=== PATIENT | female | born 1985 | race Caucasian/White ===

== ENCOUNTER 2020-12-28 20:19 | Emergency (ER) | payer MEDICAID ==
[~2020-12-28] VITALS: Ht 160 cm; Wt 79.0 kg
[2020-12-28] MEDS ORDERED: ALBUTEROL SUL0.083 % IN (21:14)
[2020-12-28] MEDS ORDERED: MARIJUANA (21:15)
[2020-12-28] MEDS ORDERED: DIFLUCAN150 MG PO (21:22)
[2020-12-28 21:26] VITALS: BP 134/78
== END 2020-12-28 21:40 | disposition home or self-care (01) ==
LOC: ED 20:19
DX: N76.0 Acute vaginitis (principal); Z90.710 Acquired absence of both cervix and uterus

== ENCOUNTER 2021-01-01 18:45 | Emergency (ER) | payer MEDICAID ==
[~2021-01-01] VITALS: Ht 152.4 cm; Wt 79.5 kg
[~2021-01-01 18:45] MED LIST: ALBUTEROL SUL0.083 % IN; DIFLUCAN150 MG PO; MARIJUANA
[2021-01-01 19:24] VITALS: BP 117/77
[2021-01-01] MEDS ORDERED: PREDNISONE50 MG PO (20:10)
== END 2021-01-01 20:20 | disposition home or self-care (01) ==
LOC: ED 18:45
DX: M25.531 Pain in right wrist (principal); F17.210 Nicotine dependence, cigarettes, uncomplicated

== ENCOUNTER 2021-01-29 19:15 | Emergency (ER) | payer MEDICAID ==
[~2021-01-29] VITALS: Ht 160 cm; Wt 82.0 kg
[~2021-01-29 19:15] MED LIST changes: +PREDNISONE50 MG PO
[2021-01-29] MEDS ORDERED: LYRICA50 MG PO (19:51)
[2021-01-29] MEDS ORDERED: BACTRIM DS1 TAB PO (19:56)
[2021-01-29 20:08] VITALS: BP 118/58
== END 2021-01-29 20:11 | disposition home or self-care (01) ==
LOC: ED 19:15
DX: L73.9 Follicular disorder, unspecified (principal); J45.909 Unspecified asthma, uncomplicated; F17.210 Nicotine dependence, cigarettes, uncomplicated

== ENCOUNTER 2021-03-28 16:48 | Emergency (ER) | payer MEDICAID ==
[~2021-03-28] VITALS: Ht 160 cm; Wt 79.5 kg
[~2021-03-28 16:48] MED LIST changes: +BACTRIM DS1 TAB PO; +LYRICA50 MG PO
[2021-03-28 17:32] LABS: URINE BILIRUBIN - DIPSTICK NEGATIVE (NEGATIVE); URINE BLOOD DIPSTICK SMALL (NEGATIVE); URINE COLOR YELLOW; URINE GLUCOSE - DIPSTICK NEGATIVE (NEGATIVE); URINE KETONE NEGATIVE (NEGATIVE); URINE LEUK ESTERASE NEGATIVE (NEGATIVE); URINE NITRITE - DIPSTICK NEGATIVE (Negative); URINE PH 6.5 (4.5-8.0); URINE PROTEIN - DIPSTICK NEGATIVE (NEG-TRACE); URINE UROBILINOGEN - DIPSTICK 0.2 E.U./dL (0.2)
[2021-03-28 17:40] LABS: URINE RBC 0-2 RBC/hpf (0-5); URINE SQUAMOUS EPITHELIAL CELL FEW EPI/hpf (0-FEW)
[2021-03-28 17:49] LABS: HEMATOCRIT 41.5 % (37.0-47.0); HEMOGLOBIN 13.6 g/dl (12.0-16.0); IMMATURE GRANULOCYTES 0.2 % (0.0-5.0); MEAN CELL VOLUME 93.3 fL CALC (80.0-100.0); MEAN CORPUSCULAR HGB 30.6 pG CALC (26.0-32.0); MEAN CORPUSCULAR HGB CONC 32.8 g/dL CAL (32.0-36.0); NEUT# 4.56 thou/uL (2.00-7.15); RED BLOOD COUNT 4.45 mill/uL (4.20-5.60); RED CELL DISTRI WIDTH 12.6 % (11.5-15.5)
[2021-03-28 18:04] LABS: ALBUMIN 4.2 g/dL (3.2-5.0); ALKALINE PHOSPHATASE 51 u/l (38-126); ANION GAP 8 (6-22 (CALC)); BILIRUBIN, TOTAL 0.6 mg/dL (0.0-1.4); BUN 12 mg/dL (7-17); BUN/CREATININE RATIO 15 (12-20 (CALC)); CARBON DIOXIDE 25 mmol/l (22-30); CHLORIDE 108 mmol/l (95-108); CREATININE 0.8 mg/dL (0.5-1.0); GFR > 60 ML/MIN (>=60 (CALC)); GFR FOR AFR.AMER. > 60 ML/MIN (>=60 (CALC)); LIPASE 454 u/l (23-300); POTASSIUM 3.6 mmol/l (3.5-5.1); SGOT/AST 24 u/l (14-36); SODIUM 137 mmol/l (137-146); TOTAL PROTEIN 7.5 g/dL (6.3-8.2)
[2021-03-28] MEDS ORDERED: TRAMADOL HCL50 MG PO (19:41)
[2021-03-28 20:09] VITALS: BP 116/70
== END 2021-03-28 20:11 | disposition home or self-care (01) ==
LOC: ED 16:48
PROVIDERS: Family Medicine
DX: R10.12 Left upper quadrant pain (principal); M79.7 Fibromyalgia; J45.909 Unspecified asthma, uncomplicated; E66.9 Obesity, unspecified; F17.200 Nicotine dependence, unspecified, uncomplicated; Z68.31 Body mass index [BMI] 31.0-31.9, adult; Z20.822 Contact with and (suspected) exposure to COVID-19
CPT/HCPCS: Q9967

== ENCOUNTER 2021-03-30 19:24 | Emergency (ER) | payer MEDICAID ==
[~2021-03-30] VITALS: Ht 160 cm; Wt 79.0 kg
[~2021-03-30 19:24] MED LIST changes: +TRAMADOL HCL50 MG PO
[2021-03-30 20:57] LABS: IMMATURE GRANULOCYTES 0.1 % (0.0-5.0); MEAN CELL VOLUME 91.9 fL CALC (80.0-100.0); MEAN CORPUSCULAR HGB 30.6 pG CALC (26.0-32.0); MEAN CORPUSCULAR HGB CONC 33.3 g/dL CAL (32.0-36.0); NEUT# 6.77 thou/uL (2.00-7.15); RED BLOOD COUNT 4.57 mill/uL (4.20-5.60); RED CELL DISTRI WIDTH 12.3 % (11.5-15.5)
[2021-03-30 20:59] LABS: URINE BLOOD DIPSTICK NEGATIVE (NEGATIVE); URINE GLUCOSE - DIPSTICK NEGATIVE (NEGATIVE); URINE KETONE NEGATIVE (NEGATIVE); URINE LEUK ESTERASE NEGATIVE (NEGATIVE); URINE PROTEIN - DIPSTICK NEGATIVE (NEG-TRACE); URINE SPECIFIC GRAVITY >=1.030
[2021-03-30 21:02] LABS: URINE BILIRUBIN - DIPSTICK NEGATIVE (NEGATIVE); URINE COLOR DK. YELLOW; URINE NITRITE - DIPSTICK NEGATIVE (Negative)
[2021-03-30 21:05] LABS: HCG SERUM/URINE (NEG/POS) NEGATIVE (NEGATIVE)
[2021-03-30 21:10] VITALS: BP 118/63
[2021-03-30 21:18] LABS: ALBUMIN 4.2 g/dL (3.2-5.0); AMYLASE 108 u/l (30-110); ANION GAP 8 (6-22 (CALC)); BUN 11 mg/dL (7-17); BUN/CREATININE RATIO 13 (12-20 (CALC)); CARBON DIOXIDE 29 mmol/l (22-30); CHLORIDE 103 mmol/l (95-108); CREATININE 0.8 mg/dL (0.5-1.0); ETHYL ALCOHOL 0 mg/dl (0-30); GFR > 60 ML/MIN (>=60 (CALC)); GFR FOR AFR.AMER. > 60 ML/MIN (>=60 (CALC)); LIPASE 164 u/l (23-300); POTASSIUM 3.2 mmol/l (3.5-5.1); SODIUM 136 mmol/l (137-146); TOTAL PROTEIN 7.2 g/dL (6.3-8.2)
[2021-03-30 21:23] LABS: ALKALINE PHOSPHATASE 99 u/l (38-126); SGOT/AST 162 u/l (14-36)
== END 2021-03-30 22:00 | disposition left against medical advice (07) ==
LOC: ED 19:24
DX: R10.12 Left upper quadrant pain (principal); R10.13 Epigastric pain; R11.0 Nausea; J45.909 Unspecified asthma, uncomplicated; M79.7 Fibromyalgia; M41.9 Scoliosis, unspecified; F17.200 Nicotine dependence, unspecified, uncomplicated; Z91.19 Patient's noncompliance with other medical treatment and regimen; Z90.49 Acquired absence of other specified parts of digestive tract; Z20.822 Contact with and (suspected) exposure to COVID-19
CPT/HCPCS: S0164

== ENCOUNTER 2021-06-28 09:36 | Emergency (ER) | payer MEDICAID ==
[~2021-06-28] VITALS: Ht 160 cm; Wt 77.3 kg
[2021-06-28 10:31] LABS: URINE BILIRUBIN - DIPSTICK NEGATIVE (NEGATIVE); URINE BLOOD DIPSTICK TRACE-INTACT (NEGATIVE); URINE COLOR YELLOW; URINE GLUCOSE - DIPSTICK NEGATIVE (NEGATIVE); URINE KETONE NEGATIVE (NEGATIVE); URINE LEUK ESTERASE NEGATIVE (NEGATIVE); URINE PROTEIN - DIPSTICK NEGATIVE (NEG-TRACE); URINE UROBILINOGEN - DIPSTICK 0.2 E.U./dL (0.2)
[2021-06-28 10:32] LABS: URINE NITRITE - DIPSTICK NEGATIVE (Negative)
[2021-06-28 10:33] LABS: HEMATOCRIT 40.8 % (37.0-47.0); HEMOGLOBIN 13.1 g/dl (12.0-16.0); IMMATURE GRANULOCYTES 0.1 % (0.0-5.0); MEAN CELL VOLUME 93.8 fL CALC (80.0-100.0); MEAN CORPUSCULAR HGB 30.1 pG CALC (26.0-32.0); MEAN CORPUSCULAR HGB CONC 32.1 g/dL CAL (32.0-36.0); NEUT# 4.83 thou/uL (2.00-7.15); RED BLOOD COUNT 4.35 mill/uL (4.20-5.60); RED CELL DISTRI WIDTH 13.7 % (11.5-15.5)
[2021-06-28 11:19] LABS: ALBUMIN 3.4 g/dL (3.2-5.0); BUN 12 mg/dL (7-17); BUN/CREATININE RATIO 16 (12-20 (CALC)); CARBON DIOXIDE 26 mmol/l (22-30); CHLORIDE 109 mmol/l (95-108); CREATININE 0.8 mg/dL (0.5-1.0); GFR > 60 ML/MIN (>=60 (CALC)); GFR FOR AFR.AMER. > 60 ML/MIN (>=60 (CALC)); LIPASE 179 u/l (23-300); SODIUM 138 mmol/l (137-146); TOTAL PROTEIN 6.3 g/dL (6.3-8.2)
[2021-06-28 11:20] LABS: ALKALINE PHOSPHATASE 47 u/l (38-126); ANION GAP 7 (6-22 (CALC)); BILIRUBIN, TOTAL 0.4 mg/dL (0.0-1.4); POTASSIUM 4.3 mmol/l (3.5-5.1); SGOT/AST 21 u/l (14-36)
[2021-06-28 12:02] LABS: TSH, 3RD GENERATION 0.66 uIU/mL (0.47 - 4.68)
[2021-06-28 12:59] VITALS: BP 131/70
== END 2021-06-28 12:59 | disposition home or self-care (01) ==
LOC: ED 09:36
PROVIDERS: Family Medicine
DX: R10.84 Generalized abdominal pain (principal); J45.909 Unspecified asthma, uncomplicated; F32.A Depression, unspecified; F17.210 Nicotine dependence, cigarettes, uncomplicated; Z13.220 Encounter for screening for lipoid disorders; R53.83 Other fatigue; D64.9 Anemia, unspecified

== ENCOUNTER 2021-07-29 13:58 | Emergency (ER) | payer OTHER, MEDICAID ==
[~2021-07-29] VITALS: Ht 160 cm; Wt 68.0 kg
[2021-07-29 16:03] VITALS: BP 112/82
== END 2021-07-29 16:05 | disposition home or self-care (01) | DRG 914 ==
LOC: ED 13:58
DX: S67.197A Crushing injury of left little finger, initial encounter (principal); J45.909 Unspecified asthma, uncomplicated; F32.A Depression, unspecified; M79.7 Fibromyalgia; F17.210 Nicotine dependence, cigarettes, uncomplicated; W31.9XXA Contact with unspecified machinery, initial encounter; Y92.89 Other specified places as the place of occurrence of the external cause; Y99.0 Civilian activity done for income or pay

== ENCOUNTER 2021-09-25 22:46 | Emergency (ER) | payer MEDICAID ==
[~2021-09-25] VITALS: Ht 160 cm; Wt 82.0 kg
[2021-09-25] MEDS ORDERED: AMOX/K CLAV875 M1 PO (23:34)
[2021-09-26] MEDS ORDERED: ZOLOFT50 MG PO (00:14)
[2021-09-26 00:16] VITALS: BP 120/79
== END 2021-09-26 00:21 | disposition home or self-care (01) ==
LOC: ED 22:46
DX: S80.871A Other superficial bite, right lower leg, initial encounter (principal); J45.909 Unspecified asthma, uncomplicated; F32.A Depression, unspecified; M79.7 Fibromyalgia; F17.200 Nicotine dependence, unspecified, uncomplicated; W54.0XXA Bitten by dog, initial encounter; Y93.89 Activity, other specified; Y92.009 Unspecified place in unspecified non-institutional (private) residence as the place of occurrence of the external cause; Y99.0 Civilian activity done for income or pay

== ENCOUNTER 2021-10-27 19:14 | Emergency (ER) | payer OTHER, MEDICAID ==
[~2021-10-27] VITALS: Ht 160 cm; Wt 90.0 kg
[~2021-10-27 19:14] MED LIST changes: +AMOX/K CLAV875 M1 PO; +ZOLOFT50 MG PO
[2021-10-27 19:47] VITALS: BP 120/56
[2021-10-27 20:01] VITALS: BP 109/50
[2021-10-27 21:00] VITALS: BP 97/55
[2021-10-27 22:00] VITALS: BP 106/62
[2021-10-27 22:06] LABS: HEMATOCRIT 42.8 % (37.0-47.0); IMMATURE GRANULOCYTES 0.2 % (0.0-5.0); MEAN CELL VOLUME 91.6 fL CALC (80.0-100.0); MEAN CORPUSCULAR HGB CONC 32.7 g/dL CAL (32.0-36.0); NEUT# 5.69 thou/uL (2.00-7.15); RED BLOOD COUNT 4.67 mill/uL (4.20-5.60); RED CELL DISTRI WIDTH 12.9 % (11.5-15.5)
[2021-10-27 22:22] LABS: ALBUMIN 4.1 g/dL (3.2-5.0); ALKALINE PHOSPHATASE 64 u/l (38-126); ANION GAP 4 (6-22 (CALC)); BILIRUBIN, TOTAL 0.5 mg/dL (0.0-1.4); BUN 10 mg/dL (7-17); BUN/CREATININE RATIO 12 (12-20 (CALC)); CARBON DIOXIDE 29 mmol/l (22-30); CHLORIDE 105 mmol/l (95-108); CREATININE 0.9 mg/dL (0.5-1.0); GFR > 60 ML/MIN (>=60 (CALC)); GFR FOR AFR.AMER. > 60 ML/MIN (>=60 (CALC)); POTASSIUM 3.8 mmol/l (3.5-5.1); SGOT/AST 30 u/l (14-36); SODIUM 135 mmol/l (137-146)
== END 2021-10-27 22:45 | disposition short-term general hospital (02) ==
LOC: ED 19:14
PROVIDERS: Emergency Medicine
DX: S06.340A Traumatic hemorrhage of right cerebrum without loss of consciousness, initial encounter (principal); J45.909 Unspecified asthma, uncomplicated; F32.A Depression, unspecified; F17.200 Nicotine dependence, unspecified, uncomplicated; W20.8XXA Other cause of strike by thrown, projected or falling object, initial encounter; Y93.89 Activity, other specified; Y92.89 Other specified places as the place of occurrence of the external cause; Y99.0 Civilian activity done for income or pay; Z20.822 Contact with and (suspected) exposure to COVID-19

== ENCOUNTER 2021-11-14 18:47 | Emergency (ER) | payer MEDICAID ==
[~2021-11-14] VITALS: Ht 160 cm; Wt 85.9 kg
[2021-11-14 20:15] LABS: HEMATOCRIT 38.6 % (37.0-47.0); HEMOGLOBIN 12.7 g/dl (12.0-16.0); IMMATURE GRANULOCYTES 0.2 % (0.0-5.0); MEAN CELL VOLUME 91.5 fL CALC (80.0-100.0); MEAN CORPUSCULAR HGB 30.1 pG CALC (26.0-32.0); MEAN CORPUSCULAR HGB CONC 32.9 g/dL CAL (32.0-36.0); NEUT# 3.99 thou/uL (2.00-7.15); RED BLOOD COUNT 4.22 mill/uL (4.20-5.60); RED CELL DISTRI WIDTH 13.3 % (11.5-15.5)
[2021-11-14 20:33] LABS: ALBUMIN 3.5 g/dL (3.2-5.0); ALKALINE PHOSPHATASE 43 u/l (38-126); ANION GAP 10 (6-22 (CALC)); BUN 13 mg/dL (7-17); BUN/CREATININE RATIO 15 (12-20 (CALC)); CARBON DIOXIDE 25 mmol/l (22-30); CHLORIDE 107 mmol/l (95-108); CREATININE 0.8 mg/dL (0.5-1.0); GFR > 60 ML/MIN (>=60 (CALC)); GFR FOR AFR.AMER. > 60 ML/MIN (>=60 (CALC)); LIPASE 186 u/l (23-300); POTASSIUM 4.4 mmol/l (3.5-5.1); SGOT/AST 21 u/l (14-36); SODIUM 138 mmol/l (137-146); TOTAL PROTEIN 6.2 g/dL (6.3-8.2)
[2021-11-14 20:40] LABS: BILIRUBIN, TOTAL 0.1 mg/dL (0.0-1.4)
[2021-11-14 20:40] LABS: URINE BILIRUBIN - DIPSTICK NEGATIVE (NEGATIVE); URINE BLOOD DIPSTICK TRACE-INTACT (NEGATIVE); URINE COLOR YELLOW; URINE GLUCOSE - DIPSTICK NEGATIVE (NEGATIVE); URINE KETONE NEGATIVE (NEGATIVE); URINE LEUK ESTERASE NEGATIVE (NEGATIVE); URINE PROTEIN - DIPSTICK NEGATIVE (NEG-TRACE); URINE SPECIFIC GRAVITY >=1.030; URINE UROBILINOGEN - DIPSTICK 0.2 E.U./dL (0.2)
[2021-11-14 20:42] LABS: URINE NITRITE - DIPSTICK NEGATIVE (Negative)
[2021-11-14 22:37] VITALS: BP 110/59
== END 2021-11-15 00:55 | disposition home or self-care (01) ==
LOC: ED 18:47
PROVIDERS: Internal Medicine
DX: R10.12 Left upper quadrant pain (principal); J45.909 Unspecified asthma, uncomplicated; F32.A Depression, unspecified; Z90.710 Acquired absence of both cervix and uterus; Z90.49 Acquired absence of other specified parts of digestive tract
CPT/HCPCS: Q9967

== ENCOUNTER 2021-11-22 19:35 | Emergency (ER) | payer MEDICAID ==
[~2021-11-22] VITALS: Ht 160 cm; Wt 86.3 kg
[2021-11-22 21:11] VITALS: BP 102/67
[2021-11-22 21:27] LABS: HEMATOCRIT 42.1 % (37.0-47.0); HEMOGLOBIN 13.7 g/dl (12.0-16.0); IMMATURE GRANULOCYTES 0.1 % (0.0-5.0); MEAN CELL VOLUME 92.5 fL CALC (80.0-100.0); MEAN CORPUSCULAR HGB 30.1 pG CALC (26.0-32.0); MEAN CORPUSCULAR HGB CONC 32.5 g/dL CAL (32.0-36.0); NEUT# 3.47 thou/uL (2.00-7.15); RED BLOOD COUNT 4.55 mill/uL (4.20-5.60); RED CELL DISTRI WIDTH 12.9 % (11.5-15.5)
[2021-11-22 21:28] LABS: URINE BILIRUBIN - DIPSTICK NEGATIVE (NEGATIVE); URINE BLOOD DIPSTICK TRACE-INTACT (NEGATIVE); URINE COLOR YELLOW; URINE GLUCOSE - DIPSTICK NEGATIVE (NEGATIVE); URINE KETONE NEGATIVE (NEGATIVE); URINE LEUK ESTERASE NEGATIVE (NEGATIVE); URINE PROTEIN - DIPSTICK NEGATIVE (NEG-TRACE); URINE SPECIFIC GRAVITY 1.025; URINE UROBILINOGEN - DIPSTICK 0.2 E.U./dL (0.2)
[2021-11-22 21:29] LABS: URINE NITRITE - DIPSTICK NEGATIVE (Negative)
[2021-11-22 21:43] LABS: ALBUMIN 3.8 g/dL (3.2-5.0); ALKALINE PHOSPHATASE 48 u/l (38-126); ANION GAP 11 (6-22 (CALC)); BILIRUBIN, TOTAL 0.4 mg/dL (0.0-1.4); BUN 13 mg/dL (7-17); BUN/CREATININE RATIO 16 (12-20 (CALC)); CARBON DIOXIDE 26 mmol/l (22-30); CHLORIDE 106 mmol/l (95-108); CREATININE 0.9 mg/dL (0.5-1.0); GFR > 60 ML/MIN (>=60 (CALC)); GFR FOR AFR.AMER. > 60 ML/MIN (>=60 (CALC)); POTASSIUM 3.8 mmol/l (3.5-5.1); SGOT/AST 28 u/l (14-36); SODIUM 139 mmol/l (137-146); TOTAL PROTEIN 6.6 g/dL (6.3-8.2)
== END 2021-11-22 23:05 | disposition left against medical advice (07) ==
LOC: ED 19:35
PROVIDERS: Family Medicine
DX: S06.349A Traumatic hemorrhage of right cerebrum with loss of consciousness of unspecified duration, initial encounter (principal); X58.XXXA Exposure to other specified factors, initial encounter; J45.909 Unspecified asthma, uncomplicated; F32.A Depression, unspecified; Z91.19 Patient's noncompliance with other medical treatment and regimen

== ENCOUNTER 2022-01-01 02:11 | Emergency (ER) | payer MEDICAID ==
[~2022-01-01] VITALS: Ht 160 cm; Wt 86.0 kg
[2022-01-01 02:28] VITALS: BP 176/116
[2022-01-01 02:30] VITALS: BP 146/113
[2022-01-01] MEDS ORDERED: ALLEGRA-D 2424 HOUR PO (02:38)
[2022-01-01] MEDS ORDERED: BACTRIM DS1 TAB PO (02:38)
[2022-01-01 02:45] VITALS: BP 150/111
[2022-01-01 03:00] VITALS: BP 144/94
[2022-01-01 03:14] VITALS: BP 144/94
== END 2022-01-01 03:15 | disposition home or self-care (01) ==
LOC: ED 02:11
DX: J01.90 Acute sinusitis, unspecified (principal); H69.92 Unspecified Eustachian tube disorder, left ear; J45.909 Unspecified asthma, uncomplicated; F32.A Depression, unspecified; F17.200 Nicotine dependence, unspecified, uncomplicated

== ENCOUNTER 2022-01-22 14:10 | Emergency (ER) | payer MEDICAID ==
[~2022-01-22] VITALS: Ht 160 cm; Wt 86.3 kg
[~2022-01-22 14:10] MED LIST changes: +ALLEGRA-D 2424 HOUR PO
[2022-01-22] MEDS ORDERED: AMOX/K CLAV875 M1 PO (14:45)
[2022-01-22] MEDS ORDERED: MEDDOSEPAK PO (14:45)
[2022-01-22] MEDS ORDERED: LEVOCETIRIZINE D5 MG PO (14:45)
[2022-01-22 14:53] VITALS: BP 140/110
== END 2022-01-22 15:16 | disposition home or self-care (01) ==
LOC: ED 14:10
DX: J01.90 Acute sinusitis, unspecified (principal); J45.909 Unspecified asthma, uncomplicated; M79.7 Fibromyalgia; F32.A Depression, unspecified; F17.200 Nicotine dependence, unspecified, uncomplicated; H92.02 Otalgia, left ear; J34.89 Other specified disorders of nose and nasal sinuses; H66.92 Otitis media, unspecified, left ear

== ENCOUNTER 2022-01-28 19:52 | Emergency (ER) | payer MEDICAID ==
[~2022-01-28] VITALS: Ht 162.6 cm; Wt 88.6 kg
[~2022-01-28 19:52] MED LIST changes: +LEVOCETIRIZINE D5 MG PO; +MEDDOSEPAK PO
[2022-01-28 20:05] VITALS: BP 159/118
[2022-01-28 20:06] VITALS: BP 137/105
[2022-01-28 20:30] VITALS: BP 152/85
[2022-01-28 20:39] LABS: HEMATOCRIT 44.5 % (37.0-47.0); HEMOGLOBIN 14.3 g/dl (12.0-16.0); IMMATURE GRANULOCYTES 0.5 % (0.0-5.0); MEAN CELL VOLUME 93.3 fL CALC (80.0-100.0); MEAN CORPUSCULAR HGB CONC 32.1 g/dL CAL (32.0-36.0); NEUT# 11.33 thou/uL (2.00-7.15); RED BLOOD COUNT 4.77 mill/uL (4.20-5.60); RED CELL DISTRI WIDTH 13.2 % (11.5-15.5)
[2022-01-28 20:49] LABS: ALKALINE PHOSPHATASE 51 u/l (38-126); ANION GAP 10 (6-22 (CALC)); BUN 18 mg/dL (7-17); BUN/CREATININE RATIO 23 (12-20 (CALC)); CARBON DIOXIDE 27 mmol/l (22-30); CHLORIDE 105 mmol/l (95-108); CREATININE 0.8 mg/dL (0.5-1.0); GFR FOR AFR.AMER. > 60 ML/MIN (>=60 (CALC)); GFR OTHER RACES > 60 ML/MIN (>=60 (CALC)); SGOT/AST 18 u/l (14-36); SODIUM 137 mmol/l (137-146); TOTAL PROTEIN 7.1 g/dL (6.3-8.2)
[2022-01-28 20:55] LABS: BILIRUBIN, TOTAL 0.2 mg/dL (0.0-1.4)
[2022-01-28 21:00] VITALS: BP 126/87
[2022-01-28 21:30] VITALS: BP 148/95
[2022-01-28] MEDS ORDERED: TEGRETOL200 MG PO (21:52)
[2022-01-28 21:55] VITALS: BP 148/95
== END 2022-01-28 22:00 | disposition home or self-care (01) ==
LOC: ED 19:52
PROVIDERS: Family Medicine
DX: G50.0 Trigeminal neuralgia (principal); F32.A Depression, unspecified; M79.7 Fibromyalgia; F17.210 Nicotine dependence, cigarettes, uncomplicated

== ENCOUNTER 2022-01-31 20:47 | Emergency (ER) | payer MEDICAID ==
[~2022-01-31] VITALS: Ht 162.6 cm; Wt 89.0 kg
[~2022-01-31 20:47] MED LIST changes: +TEGRETOL200 MG PO
[2022-01-31 20:57] VITALS: BP 157/84
[2022-01-31 21:41] LABS: URINE BILIRUBIN - DIPSTICK NEGATIVE (NEGATIVE); URINE BLOOD DIPSTICK MODERATE (NEGATIVE); URINE COLOR YELLOW; URINE GLUCOSE - DIPSTICK NEGATIVE (NEGATIVE); URINE KETONE NEGATIVE (NEGATIVE); URINE LEUK ESTERASE NEGATIVE (NEGATIVE); URINE PROTEIN - DIPSTICK NEGATIVE (NEG-TRACE); URINE SPECIFIC GRAVITY >=1.030; URINE UROBILINOGEN - DIPSTICK 0.2 E.U./dL (0.2)
[2022-01-31 21:42] LABS: HEMATOCRIT 42.3 % (37.0-47.0); HEMOGLOBIN 13.9 g/dl (12.0-16.0); IMMATURE GRANULOCYTES 0.2 % (0.0-5.0); MEAN CELL VOLUME 91.4 fL CALC (80.0-100.0); MEAN CORPUSCULAR HGB CONC 32.9 g/dL CAL (32.0-36.0); NEUT# 9.7 thou/uL (2.00-7.15); RED BLOOD COUNT 4.63 mill/uL (4.20-5.60); RED CELL DISTRI WIDTH 13.3 % (11.5-15.5)
[2022-01-31 21:44] LABS: URINE NITRITE - DIPSTICK NEGATIVE (Negative)
[2022-01-31 21:52] LABS: URINE SQUAMOUS EPITHELIAL CELL FEW EPI/hpf (0-FEW)
[2022-01-31 22:05] LABS: ALBUMIN 4.1 g/dL (3.2-5.0); ALKALINE PHOSPHATASE 71 u/l (38-126); ANION GAP 9 (6-22 (CALC)); BUN 10 mg/dL (7-17); BUN/CREATININE RATIO 11 (12-20 (CALC)); CARBON DIOXIDE 29 mmol/l (22-30); CHLORIDE 99 mmol/l (95-108); CREATININE 0.9 mg/dL (0.5-1.0); GFR FOR AFR.AMER. > 60 ML/MIN (>=60 (CALC)); GFR OTHER RACES > 60 ML/MIN (>=60 (CALC)); POTASSIUM 3.6 mmol/l (3.5-5.1); SODIUM 134 mmol/l (137-146); TOTAL PROTEIN 7.2 g/dL (6.3-8.2)
[2022-01-31 22:09] LABS: BILIRUBIN, TOTAL 0.3 mg/dL (0.0-1.4); SGOT/AST 60 u/l (14-36)
[2022-01-31] MEDS ORDERED: NAPROXEN500 MG PO (23:36)
[2022-01-31] MEDS ORDERED: BACTRIM DS1 TAB PO (23:36)
[2022-02-01 01:16] VITALS: BP 127/86
== END 2022-02-01 01:10 | disposition home or self-care (01) ==
LOC: ED 20:47
PROVIDERS: Emergency Medicine
DX: N39.0 Urinary tract infection, site not specified (principal); J45.909 Unspecified asthma, uncomplicated; M79.7 Fibromyalgia; F32.A Depression, unspecified; F17.210 Nicotine dependence, cigarettes, uncomplicated; Z20.822 Contact with and (suspected) exposure to COVID-19
CPT/HCPCS: Q9967

== ENCOUNTER 2022-02-09 15:43 | Emergency (ER) | payer MEDICAID ==
[~2022-02-09] VITALS: Ht 162.6 cm; Wt 89.0 kg
[2022-02-09] VITALS (10 sets, daily range): BP systolic 112–148; BP diastolic 54–95
[~2022-02-09 15:43] MED LIST changes: +NAPROXEN500 MG PO
[2022-02-09] MEDS ORDERED: NAPROXEN500 MG PO (18:22)
== END 2022-02-09 18:41 | disposition home or self-care (01) ==
LOC: ED 15:43
DX: S92.532A Displaced fracture of distal phalanx of left lesser toe(s), initial encounter for closed fracture (principal); F17.210 Nicotine dependence, cigarettes, uncomplicated; W22.09XA Striking against other stationary object, initial encounter; Y93.89 Activity, other specified; Y92.009 Unspecified place in unspecified non-institutional (private) residence as the place of occurrence of the external cause

== ENCOUNTER 2022-02-18 00:01 | Emergency (ER) | payer MEDICAID ==
[~2022-02-18] VITALS: Ht 162.6 cm; Wt 90.0 kg
[2022-02-18 00:12] VITALS: BP 142/67
[2022-02-18 00:30] VITALS: BP 118/71
[2022-02-18 01:00] VITALS: BP 113/76
[2022-02-18 01:00] LABS: HEMATOCRIT 39.1 % (37.0-47.0); HEMOGLOBIN 12.6 g/dl (12.0-16.0); IMMATURE GRANULOCYTES 0.4 % (0.0-5.0); MEAN CELL VOLUME 92.4 fL CALC (80.0-100.0); MEAN CORPUSCULAR HGB 29.8 pG CALC (26.0-32.0); MEAN CORPUSCULAR HGB CONC 32.2 g/dL CAL (32.0-36.0); NEUT# 4.88 thou/uL (2.00-7.15); RED BLOOD COUNT 4.23 mill/uL (4.20-5.60)
[2022-02-18 01:01] LABS: URINE BILIRUBIN - DIPSTICK NEGATIVE (NEGATIVE); URINE BLOOD DIPSTICK NEGATIVE (NEGATIVE); URINE COLOR YELLOW; URINE GLUCOSE - DIPSTICK NEGATIVE (NEGATIVE); URINE KETONE NEGATIVE (NEGATIVE); URINE LEUK ESTERASE NEGATIVE (NEGATIVE); URINE PROTEIN - DIPSTICK NEGATIVE (NEG-TRACE); URINE SPECIFIC GRAVITY 1.015; URINE UROBILINOGEN - DIPSTICK 0.2 E.U./dL (0.2)
[2022-02-18 01:05] LABS: URINE NITRITE - DIPSTICK NEGATIVE (Negative)
[2022-02-18 01:15] LABS: ALKALINE PHOSPHATASE 61 u/l (38-126); ANION GAP 12 (6-22 (CALC)); BUN 13 mg/dL (7-17); BUN/CREATININE RATIO 15 (12-20 (CALC)); CARBON DIOXIDE 24 mmol/l (22-30); CHLORIDE 107 mmol/l (95-108); CREATININE 0.9 mg/dL (0.5-1.0); GFR FOR AFR.AMER. > 60 ML/MIN (>=60 (CALC)); GFR OTHER RACES > 60 ML/MIN (>=60 (CALC)); POTASSIUM 3.5 mmol/l (3.5-5.1); SGOT/AST 27 u/l (14-36); SODIUM 139 mmol/l (137-146); TOTAL PROTEIN 7.1 g/dL (6.3-8.2)
[2022-02-18 01:19] LABS: BILIRUBIN, TOTAL 0.1 mg/dL (0.0-1.4)
[2022-02-18] MEDS ORDERED: ZITHROMAX250 MG PO (01:35)
[2022-02-18] MEDS ORDERED: ULTRAM50 M1 PO (01:36)
[2022-02-18 01:44] VITALS: BP 113/76
== END 2022-02-18 01:53 | disposition home or self-care (01) ==
LOC: ED 00:01
PROVIDERS: Emergency Medicine
DX: K04.7 Periapical abscess without sinus (principal); S02.5XXA Fracture of tooth (traumatic), initial encounter for closed fracture; J45.909 Unspecified asthma, uncomplicated; F32.A Depression, unspecified; F17.200 Nicotine dependence, unspecified, uncomplicated; X58.XXXA Exposure to other specified factors, initial encounter; Z20.822 Contact with and (suspected) exposure to COVID-19

== ENCOUNTER 2022-03-08 22:12 | Emergency (ER) | payer MEDICAID ==
[~2022-03-08] VITALS: Ht 162.6 cm; Wt 88.0 kg
[~2022-03-08 22:12] MED LIST changes: +ULTRAM50 M1 PO; +ZITHROMAX250 MG PO
[2022-03-08 23:44] VITALS: BP 111/69
[2022-03-09] VITALS: BP 106/44
[2022-03-09 00:30] VITALS: BP 113/38
[2022-03-09 00:47] LABS: HEMATOCRIT 36.9 % (37.0-47.0); HEMOGLOBIN 12.3 g/dl (12.0-16.0); IMMATURE GRANULOCYTES 0.8 % (0.0-5.0); MEAN CELL VOLUME 89.8 fL CALC (80.0-100.0); MEAN CORPUSCULAR HGB 29.9 pG CALC (26.0-32.0); MEAN CORPUSCULAR HGB CONC 33.3 g/dL CAL (32.0-36.0); NEUT# 6.9 thou/uL (2.00-7.15); RED BLOOD COUNT 4.11 mill/uL (4.20-5.60); RED CELL DISTRI WIDTH 13.1 % (11.5-15.5)
[2022-03-09 01:03] LABS: ALBUMIN 3.8 g/dL (3.2-5.0); ALKALINE PHOSPHATASE 54 u/l (38-126); ANION GAP 10 (6-22 (CALC)); BUN 16 mg/dL (7-17); BUN/CREATININE RATIO 17 (12-20 (CALC)); CARBON DIOXIDE 27 mmol/l (22-30); CHLORIDE 106 mmol/l (95-108); GFR FOR AFR.AMER. > 60 ML/MIN (>=60 (CALC)); GFR OTHER RACES > 60 ML/MIN (>=60 (CALC)); SGOT/AST 22 u/l (14-36); SODIUM 139 mmol/l (137-146); TOTAL PROTEIN 6.5 g/dL (6.3-8.2)
[2022-03-09 01:30] VITALS: BP 111/62
[2022-03-09 02:01] VITALS: BP 94/42
[2022-03-09 02:32] LABS: URINE BILIRUBIN - DIPSTICK NEGATIVE (NEGATIVE); URINE BLOOD DIPSTICK TRACE-LYSED (NEGATIVE); URINE COLOR YELLOW; URINE GLUCOSE - DIPSTICK NEGATIVE (NEGATIVE); URINE KETONE NEGATIVE (NEGATIVE); URINE LEUK ESTERASE NEGATIVE (NEGATIVE); URINE NITRITE - DIPSTICK NEGATIVE (Negative); URINE PROTEIN - DIPSTICK NEGATIVE (NEG-TRACE); URINE UROBILINOGEN - DIPSTICK 0.2 E.U./dL (0.2)
[2022-03-09] MEDS ORDERED: PAXLOVID PO (02:37)
[2022-03-09 02:53] VITALS: BP 101/78
== END 2022-03-09 02:53 | disposition home or self-care (01) ==
LOC: ED 22:12
PROVIDERS: Family Medicine
DX: U07.1 COVID-19 (principal); R50.9 Fever, unspecified; F17.200 Nicotine dependence, unspecified, uncomplicated; J45.909 Unspecified asthma, uncomplicated; R52 Pain, unspecified

== ENCOUNTER 2022-04-07 22:40 | Emergency (ER) | payer MEDICAID ==
[~2022-04-07] VITALS: Ht 162.6 cm; Wt 88.6 kg
[~2022-04-07 22:40] MED LIST changes: +PAXLOVID PO
[2022-04-08 00:02] VITALS: BP 108/60
== END 2022-04-08 00:16 | disposition home or self-care (01) ==
LOC: ED 22:40
DX: L02.211 Cutaneous abscess of abdominal wall (principal); J45.909 Unspecified asthma, uncomplicated; F32.A Depression, unspecified; F17.200 Nicotine dependence, unspecified, uncomplicated

== ENCOUNTER 2022-06-05 07:24 | Emergency (ER) | payer OTHER, MEDICAID ==
[~2022-06-05] VITALS: Ht 162.6 cm; Wt 91.0 kg
[2022-06-05 07:36] VITALS: BP 120/84
[2022-06-05 07:45] VITALS: BP 112/61
[2022-06-05 08:00] VITALS: BP 107/76
[2022-06-05 08:15] VITALS: BP 119/56
[2022-06-05 08:30] VITALS: BP 107/71
[2022-06-05] MEDS ORDERED: ZPAK PO (08:38)
[2022-06-05] MEDS ORDERED: PREDNISONE50 MG PO (08:38)
[2022-06-05 08:50] VITALS: BP 107/71
== END 2022-06-05 09:13 | disposition home or self-care (01) | DRG 556 ==
LOC: ED 07:24
DX: M25.571 Pain in right ankle and joints of right foot (principal); X37.1XXA Tornado, initial encounter

== ENCOUNTER 2022-06-10 21:06 | Emergency (ER) | payer MEDICAID ==
[~2022-06-10] VITALS: Ht 162.6 cm; Wt 92.0 kg
[~2022-06-10 21:06] MED LIST changes: +ZPAK PO
[2022-06-10] MEDS ORDERED: LYRICA50 MG PO (21:44)
[2022-06-10 21:51] VITALS: BP 107/68
[2022-06-10] MEDS ORDERED: NAPROXEN500 MG PO (22:36)
[2022-06-10 22:54] VITALS: BP 107/68
== END 2022-06-10 22:56 | disposition home or self-care (01) ==
LOC: ED 21:06
DX: M25.571 Pain in right ankle and joints of right foot (principal); J45.909 Unspecified asthma, uncomplicated; F17.200 Nicotine dependence, unspecified, uncomplicated; M79.7 Fibromyalgia; M41.9 Scoliosis, unspecified; F32.A Depression, unspecified

== ENCOUNTER 2022-06-15 07:26 | Emergency (ER) | payer MEDICAID ==
[~2022-06-15] VITALS: Ht 162.6 cm; Wt 91.0 kg
[2022-06-15 07:32] VITALS: BP 119/102
[2022-06-15 07:45] VITALS: BP 108/69
[2022-06-15 08:00] VITALS: BP 118/66
[2022-06-15 08:15] VITALS: BP 121/62
[2022-06-15 09:01] VITALS: BP 121/62
== END 2022-06-15 09:07 | disposition left against medical advice (07) ==
LOC: ED 07:26
DX: J45.909 Unspecified asthma, uncomplicated (principal); F17.200 Nicotine dependence, unspecified, uncomplicated; Z53.29 Procedure and treatment not carried out because of patient's decision for other reasons; Z20.822 Contact with and (suspected) exposure to COVID-19

== ENCOUNTER 2022-07-12 07:29 | Emergency (ER) | payer MEDICAID ==
[~2022-07-12] VITALS: Ht 162.6 cm; Wt 96.0 kg
[2022-07-12] VITALS (8 sets, daily range): BP systolic 105–151; BP diastolic 47–77
== END 2022-07-12 10:19 | disposition home or self-care (01) ==
LOC: ED 07:29
DX: M25.552 Pain in left hip (principal); J45.909 Unspecified asthma, uncomplicated; F32.A Depression, unspecified; M79.7 Fibromyalgia; M41.9 Scoliosis, unspecified; G50.0 Trigeminal neuralgia; F17.200 Nicotine dependence, unspecified, uncomplicated

== ENCOUNTER 2022-10-24 20:07 | Emergency (ER) | payer MEDICAID ==
[2022-10-24] VITALS (8 sets, daily range): BP systolic 104–122; BP diastolic 63–75
[~2022-10-24] VITALS: Ht 162.6 cm; Wt 97.0 kg
[2022-10-25] VITALS (9 sets, daily range): BP systolic 106–121; BP diastolic 72–79
[2022-10-25] MEDS ORDERED: BACTRIM DS1 TAB PO (01:28)
== END 2022-10-25 02:30 | disposition home or self-care (01) ==
LOC: ED 20:07
DX: J34.0 Abscess, furuncle and carbuncle of nose (principal); J45.909 Unspecified asthma, uncomplicated; F32.A Depression, unspecified; G50.0 Trigeminal neuralgia; F17.200 Nicotine dependence, unspecified, uncomplicated

== ENCOUNTER 2022-11-14 20:45 | Emergency (ER) | payer MEDICAID ==
[~2022-11-14] VITALS: Ht 160 cm; Wt 97.0 kg
[2022-11-14] MEDS ORDERED: ASPIRINCHW 81MG PO (21:30)
[2022-11-14] MEDS ORDERED: ESTRADIOL1 MG PO (21:30)
[2022-11-14 21:51] LABS: URINE BILIRUBIN - DIPSTICK NEGATIVE (NEGATIVE); URINE BLOOD DIPSTICK NEGATIVE (NEGATIVE); URINE COLOR YELLOW; URINE GLUCOSE - DIPSTICK NEGATIVE (NEGATIVE); URINE KETONE TRACE mg/dL (NEGATIVE); URINE LEUK ESTERASE NEGATIVE (NEGATIVE); URINE PH 5.5 (4.5-8.0); URINE PROTEIN - DIPSTICK NEGATIVE (NEG-TRACE); URINE SPECIFIC GRAVITY >=1.030; URINE UROBILINOGEN - DIPSTICK 0.2 E.U./dL (0.2)
[2022-11-14 21:51] LABS: BASO% 0.5 % (0-3); EOS% 4.8 % (0-8); HEMATOCRIT 39.8 % (37.0-47.0); HEMOGLOBIN 13.1 g/dl (12.0-16.0); IMMATURE GRANULOCYTES 0.1 % (0.0-5.0); LYMPH% 29.6 % (15-41); MEAN CELL VOLUME 91.9 fL CALC (80.0-100.0); MEAN CORPUSCULAR HGB 30.3 pG CALC (26.0-32.0); MEAN CORPUSCULAR HGB CONC 32.9 g/dL CAL (32.0-36.0); MONO% 6.3 % (2-13); NEUT# 6.99 thou/uL (2.00-7.15); NEUT% 58.7 % (42-76); RED BLOOD COUNT 4.33 mill/uL (4.20-5.60); RED CELL DISTRI WIDTH 13.6 % (11.5-15.5)
[2022-11-14 21:52] LABS: URINE NITRITE - DIPSTICK NEGATIVE (Negative)
[2022-11-14 22:10] LABS: ALKALINE PHOSPHATASE 56 u/l (38-126); ANION GAP 11 (6-22 (CALC)); BUN 12 mg/dL (7-17); BUN/CREATININE RATIO 13 (12-20 (CALC)); CARBON DIOXIDE 26 mmol/l (22-30); CHLORIDE 104 mmol/l (95-108); CREATININE 0.9 mg/dL (0.5-1.0); GFR FOR AFR.AMER. > 60 ML/MIN (>=60 (CALC)); GFR OTHER RACES > 60 ML/MIN (>=60 (CALC)); POTASSIUM 3.6 mmol/l (3.5-5.1); SGOT/AST 36 u/l (14-36); SODIUM 137 mmol/l (137-146); TOTAL PROTEIN 6.8 g/dL (6.3-8.2)
[2022-11-14 22:12] LABS: BILIRUBIN, TOTAL 0.1 mg/dL (0.02-1.3)
[2022-11-14] MEDS ORDERED: NAPROXEN500 MG PO (22:51)
[2022-11-14 23:02] VITALS: BP 115/46
== END 2022-11-14 23:19 | disposition home or self-care (01) ==
LOC: ED 20:45
PROVIDERS: Emergency Medicine
DX: M79.7 Fibromyalgia (principal); F17.200 Nicotine dependence, unspecified, uncomplicated; Z87.440 Personal history of urinary (tract) infections; Z87.442 Personal history of urinary calculi

== ENCOUNTER 2022-11-17 18:45 | Emergency (ER) | payer MEDICAID ==
[~2022-11-17] VITALS: Ht 160 cm; Wt 100.0 kg
[~2022-11-17 18:45] MED LIST changes: +ASPIRINCHW 81MG PO; +ESTRADIOL1 MG PO
[2022-11-17 19:06] VITALS: BP 83/61
[2022-11-17 19:15] VITALS: BP 102/76
[2022-11-17 19:53] LABS: BASO% 0.3 % (0-3); EOS% 3.4 % (0-8); HEMATOCRIT 37.3 % (37.0-47.0); HEMOGLOBIN 12.1 g/dl (12.0-16.0); IMMATURE GRANULOCYTES 0.2 % (0.0-5.0); LYMPH% 17.6 % (15-41); MEAN CORPUSCULAR HGB 30.5 pG CALC (26.0-32.0); MEAN CORPUSCULAR HGB CONC 32.4 g/dL CAL (32.0-36.0); NEUT# 8.8 thou/uL (2.00-7.15); NEUT% 68.5 % (42-76); RED BLOOD COUNT 3.97 mill/uL (4.20-5.60)
[2022-11-17 20:05] LABS: ALBUMIN 3.7 g/dL (3.2-5.0); ALKALINE PHOSPHATASE 53 u/l (38-126); ANION GAP 7 (6-22 (CALC)); BUN 10 mg/dL (7-17); BUN/CREATININE RATIO 13 (12-20 (CALC)); CARBON DIOXIDE 28 mmol/l (22-30); CHLORIDE 106 mmol/l (95-108); CREATININE 0.7 mg/dL (0.5-1.0); GFR FOR AFR.AMER. > 60 ML/MIN (>=60 (CALC)); GFR OTHER RACES > 60 ML/MIN (>=60 (CALC)); LIPASE 112 u/l (23-300); POTASSIUM 3.7 mmol/l (3.5-5.1); SGOT/AST 22 u/l (14-36); SODIUM 137 mmol/l (137-146); TOTAL PROTEIN 6.1 g/dL (6.3-8.2)
[2022-11-17 21:08] LABS: URINE BILIRUBIN - DIPSTICK NEGATIVE (NEGATIVE); URINE BLOOD DIPSTICK SMALL (NEGATIVE); URINE COLOR YELLOW; URINE GLUCOSE - DIPSTICK NEGATIVE (NEGATIVE); URINE KETONE NEGATIVE (NEGATIVE); URINE LEUK ESTERASE NEGATIVE (NEGATIVE); URINE PH 6.5 (4.5-8.0); URINE PROTEIN - DIPSTICK NEGATIVE (NEG-TRACE); URINE UROBILINOGEN - DIPSTICK 0.2 E.U./dL (0.2)
[2022-11-17 21:09] LABS: URINE NITRITE - DIPSTICK NEGATIVE (Negative)
[2022-11-17 21:16] LABS: URINE RBC 0-2 RBC/hpf (0-5); URINE SQUAMOUS EPITHELIAL CELL FEW EPI/hpf (0-FEW)
[2022-11-17] MEDS ORDERED: TORADOL PO (21:20)
[2022-11-17 21:31] VITALS: BP 102/68
== END 2022-11-17 21:34 | disposition home or self-care (01) ==
LOC: ED 18:45
PROVIDERS: Nurse Practitioner
DX: R10.9 Unspecified abdominal pain (principal); J45.909 Unspecified asthma, uncomplicated; M79.7 Fibromyalgia; F32.A Depression, unspecified; G50.0 Trigeminal neuralgia; F17.200 Nicotine dependence, unspecified, uncomplicated; Z87.820 Personal history of traumatic brain injury; Z87.442 Personal history of urinary calculi

== ENCOUNTER 2022-12-29 19:03 | Emergency (ER) | payer MEDICAID ==
[~2022-12-29] VITALS: Ht 160 cm; Wt 90.0 kg
[~2022-12-29 19:03] MED LIST changes: +TORADOL PO
[2022-12-29 19:26] VITALS: BP 125/64
== END 2022-12-29 20:05 | disposition home or self-care (01) ==
LOC: ED 19:03
DX: M79.672 Pain in left foot (principal); J45.909 Unspecified asthma, uncomplicated; M79.7 Fibromyalgia; F32.A Depression, unspecified; G50.0 Trigeminal neuralgia; Z87.820 Personal history of traumatic brain injury

== ENCOUNTER 2023-05-07 07:23 | Emergency (ER) | payer MEDICAID ==
[~2023-05-07] VITALS: Ht 160 cm; Wt 91.0 kg
[2023-05-07 07:36] VITALS: BP 107/41
[2023-05-07 07:45] VITALS: BP 131/64
[2023-05-07] MEDS ORDERED: AMOX/K CLAV875 M1 PO (07:58)
[2023-05-07] MEDS ORDERED: ZPAK PO (07:58)
[2023-05-07 08:46] VITALS: BP 131/64
== END 2023-05-07 08:48 | disposition home or self-care (01) ==
LOC: ED 07:23
DX: S61.452A Open bite of left hand, initial encounter (principal); L03.114 Cellulitis of left upper limb; E66.9 Obesity, unspecified; J45.909 Unspecified asthma, uncomplicated; G50.0 Trigeminal neuralgia; F32.A Depression, unspecified; F17.210 Nicotine dependence, cigarettes, uncomplicated; W55.01XA Bitten by cat, initial encounter; Y92.009 Unspecified place in unspecified non-institutional (private) residence as the place of occurrence of the external cause; Z87.820 Personal history of traumatic brain injury

== ENCOUNTER 2023-05-10 21:25 | Emergency (ER) | payer MEDICAID ==
[~2023-05-10] VITALS: Ht 160 cm; Wt 90.7 kg
[2023-05-10 21:47] VITALS: BP 120/83
== END 2023-05-10 22:51 | disposition home or self-care (01) ==
LOC: ED 21:25
DX: S61.452D Open bite of left hand, subsequent encounter (principal); W55.01XD Bitten by cat, subsequent encounter

== ENCOUNTER 2023-12-30 15:04 | Emergency (ER) | payer MEDICAID ==
[~2023-12-30] VITALS: Ht 160 cm; Wt 102.0 kg
[2023-12-30] VITALS (14 sets, daily range): BP systolic 97–145; BP diastolic 62–96
[2023-12-30] MEDS ORDERED: SODIUM CHLORIDE 0.9% 1,000 ML IV ONE (15:15)
[2023-12-30 16:14] LABS: BASO% 0.9 % (0-3); EOS% 8.4 % (0-8); IMMATURE GRANULOCYTES 0.1 % (0.0-5.0); LYMPH% 24.4 % (15-41); MEAN CELL VOLUME 90.7 fL CALC (80.0-100.0); MEAN CORPUSCULAR HGB 29.7 pG CALC (26.0-32.0); MEAN CORPUSCULAR HGB CONC 32.8 g/dL CAL (32.0-36.0); MONO% 7.9 % (2-13); NEUT# 5.79 thou/uL (2.00-7.15); NEUT% 58.3 % (42-76); RED BLOOD COUNT 5.15 mill/uL (4.20-5.60); RED CELL DISTRI WIDTH 12.6 % (11.5-15.5)
[2023-12-30 16:15] LABS: HEMATOCRIT 46.7 % (37.0-47.0); HEMOGLOBIN 15.3 g/dl (12.0-16.0)
[2023-12-30 16:28] LABS: ALBUMIN 3.8 g/dL (3.2-5.0); CREATININE 0.7 mg/dL (0.5-1.0); POTASSIUM 4.3 mmol/l (3.5-5.1); TOTAL PROTEIN 6.8 g/dL (6.3-8.2)
[2023-12-30 16:39] LABS: BILIRUBIN, TOTAL 0.4 mg/dL (0.02-1.3)
[2023-12-30 16:58] LABS: TSH, 3RD GENERATION 1.29 uIU/mL (0.47 - 4.68)
[2023-12-30] MEDS ORDERED: LOTRISONE CREAM15 G1 EX (23:47)
== END 2023-12-30 20:10 | disposition home or self-care (01) ==
LOC: ED 15:04
PROVIDERS: Family Medicine
DX: R07.89 Other chest pain (principal); M54.6 Pain in thoracic spine; R10.9 Unspecified abdominal pain; J45.909 Unspecified asthma, uncomplicated; M79.7 Fibromyalgia; G50.0 Trigeminal neuralgia; F41.9 Anxiety disorder, unspecified; F32.A Depression, unspecified; Z79.899 Other long term (current) drug therapy; Z87.820 Personal history of traumatic brain injury; R21 Rash and other nonspecific skin eruption; B37.2 Candidiasis of skin and nail
CPT/HCPCS: Q9967

== ENCOUNTER 2024-02-19 22:20 | Emergency (ER) | payer MEDICAID ==
[~2024-02-19] VITALS: Ht 160 cm; Wt 90.0 kg
[~2024-02-19 22:20] MED LIST changes: +LOTRISONE CREAM15 G1 EX
[2024-02-19 22:39] VITALS: BP 144/94
[2024-02-19 22:46] VITALS: BP 105/58
[2024-02-19 23:01] VITALS: BP 108/72
[2024-02-19 23:16] VITALS: BP 131/91
[2024-02-19 23:31] VITALS: BP 134/87
[2024-02-19 23:32] LABS: BASO% 0.3 % (0-3); EOS% 0.9 % (0-8); HEMATOCRIT 43.3 % (37.0-47.0); HEMOGLOBIN 13.9 g/dl (12.0-16.0); IMMATURE GRANULOCYTES 0.5 % (0.0-5.0); LYMPH% 17.4 % (15-41); MEAN CELL VOLUME 91.7 fL CALC (80.0-100.0); MEAN CORPUSCULAR HGB 29.4 pG CALC (26.0-32.0); MEAN CORPUSCULAR HGB CONC 32.1 g/dL CAL (32.0-36.0); MONO% 11.4 % (2-13); NEUT# 6.66 thou/uL (2.00-7.15); NEUT% 69.5 % (42-76); RED BLOOD COUNT 4.72 mill/uL (4.20-5.60); RED CELL DISTRI WIDTH 13.8 % (11.5-15.5)
[2024-02-19 23:46] LABS: ALBUMIN 3.7 g/dL (3.2-5.0); CREATININE 0.8 mg/dL (0.5-1.0); POTASSIUM 3.9 mmol/l (3.5-5.1); TOTAL PROTEIN 6.7 g/dL (6.3-8.2)
[2024-02-19 23:52] LABS: BILIRUBIN, TOTAL 0.2 mg/dL (0.02-1.3)
[2024-02-19 23:54] LABS: URINE BILIRUBIN - DIPSTICK Negative (NEGATIVE); URINE BLOOD DIPSTICK Trace-intact (NEGATIVE); URINE GLUCOSE - DIPSTICK Negative (NEGATIVE); URINE KETONE Negative (NEGATIVE); URINE LEUK ESTERASE Negative (NEGATIVE); URINE NITRITE - DIPSTICK Negative (Negative); URINE PH 6.5 (4.5-8.0); URINE PROTEIN - DIPSTICK Negative (NEG-TRACE); URINE UROBILINOGEN - DIPSTICK 0.2 E.U./dL (0.2)
[2024-02-19 23:55] LABS: URINE COLOR Yellow
[2024-02-20 06:48] VITALS: BP 127/71
== END 2024-02-20 00:23 | disposition home or self-care (01) ==
LOC: ED 22:20
PROVIDERS: Family Medicine
DX: U07.1 COVID-19 (principal); R10.9 Unspecified abdominal pain; R50.9 Fever, unspecified; M54.50 Low back pain, unspecified; G89.29 Other chronic pain; J45.909 Unspecified asthma, uncomplicated; F32.A Depression, unspecified; Z87.820 Personal history of traumatic brain injury; Z72.0 Tobacco use

== ENCOUNTER 2024-03-24 13:29 | Emergency (ER) | payer OTHER, MEDICAID ==
[~2024-03-24] VITALS: Ht 160 cm; Wt 99.7 kg
[2024-03-24 13:35] VITALS: BP 136/109
[2024-03-24] MEDS ORDERED: HYDROcodone 7.5 MG/Acetaminophen 325 MG/COMBO PO ONE (13:50)
[2024-03-24] MEDS ORDERED: ORPHENADRINE CITRATE 30 MG/ML AMP IV ONE (13:50)
[2024-03-24] MEDS ORDERED: KETOROLAC TROMETHAMINE 30 MG/ML SDV IV ONE (13:50)
[2024-03-24] MEDS ORDERED: DEXAMETHASONE SOD. PHOSPHATE 10 MG/ML VIAL IV ONE (13:50)
[2024-03-24 14:20] LABS: URINE BILIRUBIN - DIPSTICK Negative (NEGATIVE); URINE BLOOD DIPSTICK Negative (NEGATIVE); URINE CLARITY Clear; URINE GLUCOSE - DIPSTICK Negative (NEGATIVE); URINE KETONE Negative (NEGATIVE); URINE LEUK ESTERASE Negative (Negative); URINE NITRITE - DIPSTICK Negative (Negative); URINE PH 7.5 (4.5-8.0); URINE PROTEIN - DIPSTICK Negative (NEG-TRACE); URINE SPECIFIC GRAVITY 1.015; URINE UROBILINOGEN - DIPSTICK 0.2 E.U./dL (0.2)
[2024-03-24] MEDS ORDERED: LACTATED RINGER'S 1,000 ML IV ONE (14:20)
[2024-03-24 14:22] LABS: URINE COLOR Yellow
[2024-03-24 15:39] VITALS: BP 136/109
== END 2024-03-24 15:40 | disposition left against medical advice (07) | DRG 552 ==
LOC: ED 13:29
PROVIDERS: Nurse Practitioner
DX: M54.50 Low back pain, unspecified (principal); M54.2 Cervicalgia; J45.909 Unspecified asthma, uncomplicated; F32.A Depression, unspecified; G50.0 Trigeminal neuralgia; M79.7 Fibromyalgia; V49.40XA Driver injured in collision with unspecified motor vehicles in traffic accident, initial encounter; Z53.29 Procedure and treatment not carried out because of patient's decision for other reasons; Z87.820 Personal history of traumatic brain injury; Z72.0 Tobacco use

== ENCOUNTER 2024-03-31 22:25 | Emergency (ER) | payer MEDICAID ==
[~2024-03-31] VITALS: Ht 160 cm; Wt 103.0 kg
[2024-03-31] MEDS ORDERED: KETOROLAC TROMETHAMINE 30 MG/ML SDV IV ONE (22:50)
[2024-03-31 22:55] LABS: URINE BILIRUBIN - DIPSTICK Negative (NEGATIVE); URINE BLOOD DIPSTICK Negative (NEGATIVE); URINE GLUCOSE - DIPSTICK Negative (NEGATIVE); URINE KETONE Trace mg/dL (NEGATIVE); URINE LEUK ESTERASE Negative (NEGATIVE); URINE NITRITE - DIPSTICK Negative (Negative); URINE PH 5.5 (4.5-8.0); URINE PROTEIN - DIPSTICK Negative (NEG-TRACE); URINE SPECIFIC GRAVITY >=1.030; URINE UROBILINOGEN - DIPSTICK 0.2 E.U./dL (0.2)
[2024-03-31 22:56] LABS: URINE COLOR Yellow
[2024-03-31] MEDS ORDERED: NAPROXEN500 MG PO (23:37)
[2024-04-01 00:42] VITALS: BP 140/82
== END 2024-04-01 00:45 | disposition home or self-care (01) ==
LOC: ED 22:25
PROVIDERS: Family Medicine
DX: R10.9 Unspecified abdominal pain (principal); N20.0 Calculus of kidney; J45.909 Unspecified asthma, uncomplicated; E66.9 Obesity, unspecified; F32.A Depression, unspecified; G50.0 Trigeminal neuralgia; F17.210 Nicotine dependence, cigarettes, uncomplicated; Z86.79 Personal history of other diseases of the circulatory system

== ENCOUNTER 2024-06-11 02:00 | Emergency (ER) | payer MEDICAID ==
[~2024-06-11] VITALS: Ht 162.6 cm; Wt 97.0 kg
[2024-06-11] MEDS ORDERED: KETOROLAC TROMETHAMINE 30 MG/ML SDV IM ONE (02:20)
[2024-06-11] MEDS ORDERED: oxyCODONE 5MG/ ACETAMINOPHEN 325MG TAB PO ONE (02:20)
[2024-06-11] MEDS ORDERED: LORTAB 5/3255 MG PO (02:24)
[2024-06-11 02:30] VITALS: BP 136/90
== END 2024-06-11 02:30 | disposition home or self-care (01) ==
LOC: ED 02:00
DX: M27.3 Alveolitis of jaws (principal); K08.409 Partial loss of teeth, unspecified cause, unspecified class; Z72.0 Tobacco use

== ENCOUNTER 2024-06-14 16:43 | Emergency (ER) | payer MEDICAID ==
[~2024-06-14] VITALS: Ht 162.6 cm; Wt 99.0 kg
[~2024-06-14 16:43] MED LIST changes: +LORTAB 5/3255 MG PO
[2024-06-14 17:06] VITALS: BP 150/102
[2024-06-14] MEDS ORDERED: ONDANSETRON 4 MG/TAB ODT PO ONE (17:10)
[2024-06-14] MEDS ORDERED: KETOROLAC TROMETHAMINE 30 MG/ML SDV IM ONE (17:10)
[2024-06-14] MEDS ORDERED: TORADOL PO (18:46)
[2024-06-14] MEDS ORDERED: METHOCARBAMOL500 MG PO (18:46)
[2024-06-14 18:55] VITALS: BP 150/102
== END 2024-06-14 18:56 | disposition home or self-care (01) ==
LOC: ED 16:43
DX: S09.90XA Unspecified injury of head, initial encounter (principal); Y00.XXXA Assault by blunt object, initial encounter; Y92.512 Supermarket, store or market as the place of occurrence of the external cause; M54.2 Cervicalgia

== ENCOUNTER 2024-08-20 21:22 | Emergency (ER) | payer MEDICAID ==
[~2024-08-20] VITALS: Ht 162.6 cm; Wt 109.0 kg
[~2024-08-20 21:22] MED LIST changes: +METHOCARBAMOL500 MG PO
[2024-08-20] MEDS ORDERED: KETOROLAC TROMETHAMINE 30 MG/ML SDV IM ONE (22:00)
[2024-08-20 22:48] LABS: HEMATOCRIT 42.5 % (37.0-47.0); IMMATURE GRANULOCYTES 0.1 % (0.0-5.0); LYMPH% 30.8 % (15-41); MEAN CELL VOLUME 91.4 fL CALC (80.0-100.0); MEAN CORPUSCULAR HGB 30.1 pG CALC (26.0-32.0); MEAN CORPUSCULAR HGB CONC 32.9 g/dL CAL (32.0-36.0); NEUT% 55.4 % (42-76); RED BLOOD COUNT 4.65 mill/uL (4.20-5.60)
[2024-08-20 22:48] LABS: URINE BILIRUBIN - DIPSTICK Negative (NEGATIVE); URINE BLOOD DIPSTICK Negative (NEGATIVE); URINE GLUCOSE - DIPSTICK Negative (NEGATIVE); URINE KETONE Negative (NEGATIVE); URINE LEUK ESTERASE Negative (NEGATIVE); URINE NITRITE - DIPSTICK Negative (Negative); URINE PROTEIN - DIPSTICK Negative (NEG-TRACE); URINE UROBILINOGEN - DIPSTICK 0.2 E.U./dL (0.2)
[2024-08-20 22:49] LABS: BASO% 0.7 % (0-3); EOS% 4.7 % (0-8); MONO% 8.3 % (2-13); NEUT# 5.94 thou/uL (2.00-7.15)
[2024-08-20 22:49] LABS: URINE COLOR Yellow
[2024-08-20 23:05] LABS: ALBUMIN 3.8 g/dL (3.2-5.0); BILIRUBIN, TOTAL 0.2 mg/dL (0.02-1.3); CREATININE 0.9 mg/dL (0.5-1.0); POTASSIUM 4.5 mmol/l (3.5-5.1); TOTAL PROTEIN 6.5 g/dL (6.3-8.2)
[2024-08-20 23:59] VITALS: BP 155/79
== END 2024-08-20 23:59 | disposition home or self-care (01) ==
LOC: ED 21:22
PROVIDERS: Family Medicine
DX: M54.50 Low back pain, unspecified (principal); L98.8 Other specified disorders of the skin and subcutaneous tissue; F41.9 Anxiety disorder, unspecified; J45.909 Unspecified asthma, uncomplicated; F32.A Depression, unspecified; G50.0 Trigeminal neuralgia

== ENCOUNTER 2024-09-14 23:48 | Emergency (ER) | payer MEDICAID ==
[~2024-09-14] VITALS: Ht 162.6 cm; Wt 104.3 kg
[2024-09-14 23:57] VITALS: BP 140/108
[2024-09-15] VITALS: BP 147/108
[2024-09-15] MEDS ORDERED: ALBUTEROL SULFATE 2.5 MG VIAL IN ONE (00:10)
[2024-09-15] MEDS ORDERED: IPRATROPIUM-Albuterol 0.5MG-2.5MG/3 ML NEB ONE (00:10)
[2024-09-15] MEDS ORDERED: predniSONE 20 MG/TAB PO ONE (00:10)
[2024-09-15 00:25] LABS: BASO% 0.5 % (0-3); EOS% 6.7 % (0-8); HEMATOCRIT 43.1 % (37.0-47.0); HEMOGLOBIN 14.1 g/dl (12.0-16.0); IMMATURE GRANULOCYTES 0.1 % (0.0-5.0); LYMPH% 26.7 % (15-41); MEAN CELL VOLUME 91.5 fL CALC (80.0-100.0); MEAN CORPUSCULAR HGB 29.9 pG CALC (26.0-32.0); MEAN CORPUSCULAR HGB CONC 32.7 g/dL CAL (32.0-36.0); MONO% 7.1 % (2-13); NEUT# 5.56 thou/uL (2.00-7.15); NEUT% 58.9 % (42-76); RED BLOOD COUNT 4.71 mill/uL (4.20-5.60); RED CELL DISTRI WIDTH 12.8 % (11.5-15.5)
[2024-09-15] MEDS ORDERED: NEURONTIN600 MG PO (00:27)
[2024-09-15 00:36] LABS: ALBUMIN 3.9 g/dL (3.2-5.0); BILIRUBIN, TOTAL 0.4 mg/dL (0.02-1.3); CREATININE 0.7 mg/dL (0.5-1.0); TOTAL PROTEIN 6.9 g/dL (6.3-8.2)
[2024-09-15 00:39] LABS: POTASSIUM 3.4 mmol/l (3.5-5.1)
[2024-09-15 01:13] LABS: URINE BLOOD DIPSTICK Trace-intact (NEGATIVE); URINE GLUCOSE - DIPSTICK Negative (NEGATIVE); URINE KETONE Negative (NEGATIVE); URINE LEUK ESTERASE Negative (NEGATIVE); URINE NITRITE - DIPSTICK Negative (Negative); URINE PROTEIN - DIPSTICK Trace mg/dL (NEG-TRACE)
[2024-09-15 01:18] LABS: URINE COLOR Yellow
[2024-09-15] MEDS ORDERED: DOXYCYCLINE HYCLATE 100 MG/CAP PO ONE (01:40)
[2024-09-15] MEDS ORDERED: PREDNISONE20 MG PO (01:42)
[2024-09-15] MEDS ORDERED: VIBRAMYCIN100 M2 PO (01:42)
[2024-09-15 01:54] VITALS: BP 129/79
== END 2024-09-15 01:54 | disposition home or self-care (01) ==
LOC: ED 23:48
PROVIDERS: Family Medicine
DX: J45.909 Unspecified asthma, uncomplicated (principal); F32.A Depression, unspecified; G50.0 Trigeminal neuralgia; F17.210 Nicotine dependence, cigarettes, uncomplicated; Z20.822 Contact with and (suspected) exposure to COVID-19